=== PATIENT | female | born 1985 | race Caucasian/White ===

== ENCOUNTER 2017-08-27 17:35 | Emergency (ER) | payer OTHER, BC ==
[~2017-08-27] VITALS: Ht 165.1 cm; Wt 111.6 kg
[2017-08-27] MEDS ORDERED: FLEXERIL10 MG PO (19:26)
[2017-08-27] MEDS ORDERED: TYLENOL WITH C1 EACH PO (19:26)
[2017-08-27] MEDS ORDERED: MOTRIN800 MG PO (19:31)
[2017-08-27 20:05] VITALS: BP 122/78
== END 2017-08-27 20:18 | disposition home or self-care (01) ==
LOC: EME 17:35
DX: S62.647A Nondisplaced fracture of proximal phalanx of left little finger, initial encounter for closed fracture (principal); S39.012A Strain of muscle, fascia and tendon of lower back, initial encounter; M54.2 Cervicalgia; V43.52XA Car driver injured in collision with other type car in traffic accident, initial encounter; Y92.410 Unspecified street and highway as the place of occurrence of the external cause
CPT/HCPCS: 73130; 99281; 99285

== ENCOUNTER 2017-09-25 10:15 | Emergency (ER) | payer OTHER, BC ==
[~2017-09-25] VITALS: Ht 165.1 cm; Wt 108.1 kg
[~2017-09-25 10:15] MED LIST: FLEXERIL10 MG PO; MOTRIN800 MG PO; TYLENOL WITH C1 EACH PO
[2017-09-25 10:47] LABS: HEMATOCRIT 46.5 % (36.0-46.0); HEMOGLOBIN 15.7 G/DL (11.9-15.5); MCH 30.1 PG (29.0-34.0); MCHC 33.8 G/DL (30.0-36.0); MCV 89.3 FL (83-99); PLATELET COUNT 275 K/uL (156-360); RBC DIS.WIDTH-CV 12.8 % (11.8-14.6); RBC DIS.WIDTH-SD 41.9 % (39-53); RED BLOOD COUNT 5.21 M/uL (3.80-5.20); WHITE BLOOD COUNT 15.2 K/uL (4.1-10.2)
[2017-09-25 10:57] LABS: ALBUMIN 4.5 g/dL (3.2-4.8)
[2017-09-25 10:58] LABS: CHLORIDE 106 mEq/L (99-109); POTASSIUM 4.4 mEq/L (3.7-5.4); SODIUM 139 mEq/L (136-147)
[2017-09-25 11:00] LABS: GLUCOSE 127 mg/dL (70-99); TOTAL PROTEIN 7.7 g/dL (6.4-8.3)
[2017-09-25 11:02] LABS: TOTAL BILIRUBIN 0.8 mg/dL (0.0-1.0)
[2017-09-25 11:03] LABS: ALKALINE PHOSPHATASE 78 IU/L (3-129)
[2017-09-25 11:04] LABS: CREATININE 0.8 mg/dL (0.6-1.3); GFR ESTIMATE (CALCULATED) > 59 mL/min/
[2017-09-25 11:05] LABS: AST (GOT) 20 IU/L (2-34); UREA NITROGEN (BUN) 12 mg/dL (9-23)
[2017-09-25 11:06] LABS: ALT (GPT) 30 IU/L (3-49)
[2017-09-25 11:12] LABS: QUANTITATIVE HCG < 4.0 MIU/ML
[2017-09-25 13:43] LABS: APPEARANCE CLOUDY ((CLEAR)); BILIRUBIN NEGATIVE; BLOOD LARGE; COLOR AMBER ((YELLOW)); GLUCOSE (STRIP) NEGATIVE; KETONES NEGATIVE; LEUKOCYTES SMALL; NITRITE NEGATIVE; PROTEIN (STRIP) 100; SPECIFIC GRAVITY 1.029 (1.000-1.030); UROBILINOGEN 0.2 MG/DL (0.2-1.0)
[2017-09-25 13:49] LABS: BACTERIA NONE SEEN /HPF; EPITHELIAL CELLS RARE /HPF; HYALINE CASTS 0-5 /LPF; MUCUS 1+ /LPF; RED BLOOD CELLS TNTC /HPF (0-5); UCUL ADDED? YES; WHITE BLOOD CELLS TNTC /HPF (0-5)
[2017-09-25] MEDS ORDERED: MOTRIN800 MG PO (14:21)
[2017-09-25] MEDS ORDERED: KEFLEX500 MG PO (14:21)
[2017-09-25] MEDS ORDERED: ZOFRAN ODT4 MG PO (14:21)
[2017-09-25] MEDS ORDERED: FLEXERIL10 MG PO (14:26)
[2017-09-25 14:38] VITALS: BP 140/106
== END 2017-09-25 14:39 | disposition home or self-care (01) ==
LOC: EME 10:15
DX: N39.0 Urinary tract infection, site not specified (principal); R11.2 Nausea with vomiting, unspecified; G89.29 Other chronic pain; Z91.040 Latex allergy status
CPT/HCPCS: 80053; 81003; 84702; 85027; 87086; 99281; 99284; J1885; J2405; J7030